=== PATIENT | female | born 1950 | race Caucasian/White ===

== ENCOUNTER 2016-08-01 23:30 | Emergency (ER) | payer BC ==
[2015-10-21 09:24] VITALS: BMI 35.9
[~2016-08-01 23:30] MED LIST: ACETAMINOPHEN325 MG PO; ASPIRIN325 MG PO; ASPIRIN81 MG PO; CELEXA10 MG PO; CORDARONE200 MG PO; COUMADIN3 MG PO; K-DUR20 MEQ PO; LASIX40 MG PO; LOVENOX60 MG/0.6 SC; NITROSTAT0.4 MG SL; TRIAMTERENE-HCT1 TA1 PO; ULTRAM50 MG PO; ZANTAC150 MG PO
[2016-08-02 00:48] LABS: HEMATOCRIT 39.9 % (36.0-48.0); HEMOGLOBIN 12.8 g/dL (12-16); LYMPHOCYTES 30.7 % (15-50); MCH 29.9 pg (26.0-34.0); MCHC 32.1 g/dL (31.0-37.0); MCV 93.2 fL (80.0-100.0); MEAN PLATELET VOLUME 9.9 fL (7.4-10.4); NEUTROPHILS 55.1 % (40-80); RBC 4.28 10x6/uL (4.00-5.40); RDW 15.2 % (11.5-14.5); WBC 6.5 10x3/uL (4.8-10.8)
[2016-08-02 00:56] LABS: ALBUMIN 3.6 g/dL (3.4-5.0); ALKALINE PHOSPHATASE 66 U/L (46-116); ALT (SGPT) 31 U/L (10-68); CALC OSMOLALITY 287 mosm/kg (275-300); CALCIUM 9.2 mg/dL (8.5-10.1); CARBON DIOXIDE 31.2 mmol/L (21.0-32.0); CHLORIDE - SERUM 103 mmol/L (98-107); CREATININE - SERUM 0.8 mg/dL (0.6-1.3); GLUCOSE 98 mg/dL (74-106); PLATELET COUNT 234 10x3/uL (130-400); POTASSIUM - SERUM 3.8 mmol/L (3.5-5.1); PROTEIN - SERUM 7.2 g/dL (6.4-8.2); SODIUM 142 mmol/L (136-145); UREA NITROGEN 27 mg/dL (7-18); eGFR NON AFRICAN AMERICAN 76 mL/min (90-120)
[2016-08-02 01:07] LABS: CKMB 1.4 U/L (0.0-3.6); CREATINE KINASE 93 UL (21-215)
[2016-08-02 01:08] LABS: TROPONIN-I < 0.017 ng/mL (0.000-0.060)
== END 2016-08-02 01:18 | disposition home or self-care (01) ==
LOC: D.ER 23:30
PROVIDERS: Emergency Medicine
DX: R07.9 Chest pain, unspecified (principal)

== ENCOUNTER → 2017-07-30 09:58 | Outpatient (CLI) | payer MEDICARE ==
[2015-10-21 09:24] VITALS: BMI 35.9
== END | disposition home or self-care (01) ==
LOC: D.US 09:58
DX: I83.891 Varicose veins of right lower extremity with other complications (principal)

== ENCOUNTER 2017-12-08 16:45 | Emergency (ER) | payer MEDICARE ==
[~2017-12-08] VITALS: Ht 152.4 cm; Wt 98.6 kg
[2017-12-08 16:50] VITALS: Ht 152.4 cm; Wt 98.6 kg
[2017-12-08] MEDS ORDERED: TOPROL XL25 MG PO (16:51)
[2017-12-08] MEDS ORDERED: LASIX40 MG PO (16:52)
[2017-12-08 17:21] LABS: BASOPHILS 0.5 % (0-2); EOSINOPHILS 3.5 % (0-7); HEMATOCRIT 40.2 % (36.0-48.0); HEMOGLOBIN 12.9 g/dL (12-16); IMMATURE GRANULOCYTES 1.2 % (0-5); LYMPHOCYTES 18.7 % (15-50); MCH 30.1 pg (26.0-34.0); MCHC 32.1 g/dL (31.0-37.0); MCV 93.7 fL (80.0-100.0); MONOCYTES 7.6 % (2-11); NEUTROPHILS 68.5 % (40-80); PLATELET COUNT 241 10x3/uL (130-400); RBC 4.29 10x6/uL (4.00-5.40); RDW 15.3 % (11.5-14.5)
[2017-12-08] MEDS ORDERED: NORCO 5/325 TAB1 TAB PO (17:30)
[2017-12-08 17:33] LABS: ALBUMIN 3.5 g/dL (3.4-5.0); ALKALINE PHOSPHATASE 79 U/L (46-116); ALT (SGPT) 36 U/L (10-68); BILIRUBIN - TOTAL 0.48 mg/dL (0.2-1.3); CALC OSMOLALITY 285 mosm/kg (275-300); CALCIUM 8.8 mg/dL (8.5-10.1); CARBON DIOXIDE 28.8 mmol/L (21.0-32.0); CHLORIDE - SERUM 105 mmol/L (98-107); CREATININE - SERUM 0.7 mg/dL (0.6-1.3); GLUCOSE 117 mg/dL (74-106); POTASSIUM - SERUM 4.2 mmol/L (3.5-5.1); PROTEIN - SERUM 7.2 g/dL (6.4-8.2); SODIUM 142 mmol/L (136-145); UREA NITROGEN 19 mg/dL (7-18); eGFR NON AFRICAN AMERICAN 89 mL/min (90-120)
[2017-12-08 19:05] VITALS: BP 115/85
[2017-12-10] MEDS ORDERED: PRAVASTATIN SOD10 MG PO (14:37)
[2017-12-10] MEDS ORDERED: K-TAB10 MEQ PO (14:38)
[2017-12-10] MEDS ORDERED: COUMADIN5 MG PO (14:40)
[2017-12-10] MEDS ORDERED: TORADOL10 MG PO (14:40)
== END 2017-12-08 19:06 | disposition home or self-care (01) ==
LOC: D.ER 16:45
PROVIDERS: Emergency Medicine
DX: S89.91XA Unspecified injury of right lower leg, initial encounter (principal); W18.31XA Fall on same level due to stepping on an object, initial encounter; Y93.89 Activity, other specified; Y92.481 Parking lot as the place of occurrence of the external cause; Z79.01 Long term (current) use of anticoagulants; I48.91 Unspecified atrial fibrillation; Z95.2 Presence of prosthetic heart valve; M25.561 Pain in right knee; I10 Essential (primary) hypertension

== ENCOUNTER 2017-12-11 05:30 | Inpatient (IN) | payer MEDICARE ==
[2017-12-10 15:18] LABS: BASOPHILS 0.6 % (0-2); EOSINOPHILS 2.3 % (0-7); HEMOGLOBIN 11.8 g/dL (12-16); IMMATURE GRANULOCYTES 0.7 % (0-5); LYMPHOCYTES 14.5 % (15-50); MCHC 31.9 g/dL (31.0-37.0); MCV 94.1 fL (80.0-100.0); MEAN PLATELET VOLUME 9.9 fL (7.4-10.4); MONOCYTES 8.1 % (2-11); NEUTROPHILS 73.8 % (40-80); PLATELET COUNT 284 10x3/uL (130-400); RBC 3.93 10x6/uL (4.00-5.40); RDW 15.5 % (11.5-14.5); WBC 11.7 10x3/uL (4.8-10.8)
[2017-12-10 15:28] LABS: APTT 39.4 SECONDS (22.8-39.4); INR 2.69 (0.85-1.17); PROTIME 27.9 SECONDS (11.6-15.0)
[2017-12-10 15:59] LABS: CALC OSMOLALITY 285 mosm/kg (275-300); CALCIUM 9.1 mg/dL (8.5-10.1); CARBON DIOXIDE 27.4 mmol/L (21.0-32.0); CHLORIDE - SERUM 101 mmol/L (98-107); CREATININE - SERUM 0.7 mg/dL (0.6-1.3); GLUCOSE 119 mg/dL (74-106); POTASSIUM - SERUM 4.2 mmol/L (3.5-5.1); SODIUM 141 mmol/L (136-145); UREA NITROGEN 23 mg/dL (7-18); eGFR NON AFRICAN AMERICAN 89 mL/min (90-120)
[~2017-12-11] VITALS: Ht 152.4 cm; Wt 98.9 kg
--- NOTE | ~2017-12-11 | MORECARE ---
CASE MANAGEMENT DISCHARGE SUMMARY PATIENT: NIYA KINNEY UNIT: [id number] ADM DATE: 12/11/17 AGE: 67 : 51 SEX: F ROOM/BED: D.2217 AUTHOR: LETY NATHAN PHYSICIAN: REFERRING PHYSICIAN: MENA CORONEL MD DATE OF SERVICE: 12/13/17 Discharge Plan Patient Name: NIYA KINNEY Facility: [facility]:[place] : 1950 Planned Disposition: Home Anticipated Discharge Date: 12/13/17 Discharge Date: Expected LOS: 2 Initial Reviewer: [id number] Initial Review Date: 12/13/2017 Generated: 12/13/17 12:10 pm Comments DCP- Discharge Planning Updated by [email or web address]: Scarlet Peck on 12/13/17 9:[address] Patient Name: NIYA KINNEY Admission Status: Elective Accout number: [id number] Admission Date: 12-11-2017 : 1950 Admission Diagnosis:CONTUSION OF RIGHT KNEE, INITIAL ENCOUNTER Attending: MENA CORONEL Current LOS: 2 Anticipated DC Date: 12-13-2017 Planned Disposition: Home Primary Insurance: [employer] MED[employer]ARE ADV Discharge Planning Comments: CM MET WITH PATIENT ABOUT DC PLANNING/NEEDS. PATIENT STATES PLANS TO DC HOME TODAY. SON IS TO REVERSAL PRINT INSPECTOR AND BRING HER WALKER. SHE STATES IF SHE IS TO HAVE PT SHE WOULD LIKE A PRESCRIPTION FOR IT TO TAKE WITH HER. CM WILL FOLLOW AND ASSIST NEEDED WITH DC PLANNING/NEEDS. IMM SERVED. Pharmaceutical Representative: Scarlet Peck DCPIA - Discharge Planning Initial Assessment Updated by [email or web address]: Scarlet Peck on 12/13/17 10:43 am * Is the patient Alert and Oriented? Yes * PCP BRENDA * [facility] * Preadmission Environment Home with Family * ADLs Independent * Equipment Cane Elevated Toliet Seat Walker * List name and contact numbers for known caregivers / representatives who currently or will assist patient after discharge: HUMA GANDHI, * Community resources currently utilized None * Additional services required to return to the preadmission environment? Yes * Can the patient safely return to the preadmission environment? Yes * Has this patient been hospitalized within the prior 30 days at any hospital? No External Providers External Provider: [facility] Next Contact Date: Service Request Date: Service Type: Resolution: Reviewer: Comments: Coverage Notice Reviewer: [id number] Emerita Peck Notice Issued Date-Time: 12/13/2017 10:26 Notice Type: IM Discharge Notice Notice Delivered To: Patient Relationship to Patient: Self Internal Medicine Specialist Name: Delivery Method: HAND - Hand Delivered Kenna Days: Prior Verbal Notification: Recipient Understood Notice: Yes Recipient Signature: Yes Med Rec Note Co-signed by Attending: Coverage Notice Comment: Last DP export: 12/13/17 9:54 Patient Name: NIYA KINNEY Page [phone] at 1110 All edits/amendments must be made on the electronic document DICTATION DATE: 12/13/171108 STEEL PLACER: BRENDA 12/13/171108 RPT#: [id number] DC DATE: STATUS: ADM IN [facility] [address] [place] [address] END OF REPORT
--- NOTE | ~2017-12-11 | MORECARE ---
CASE MANAGEMENT DISCHARGE SUMMARY PATIENT: NIYA KINNEY UNIT: [id number] ADM DATE: 12/11/17 AGE: 67 : 51 SEX: F ROOM/BED: D.2217 AUTHOR: LETY NATHAN PHYSICIAN: REFERRING PHYSICIAN: MENA CORONEL MD DATE OF SERVICE: 12/16/17 Discharge Plan Patient Name: NIYA KINNEY Facility: [facility]:[place] : 1950 Planned Disposition: Home Anticipated Discharge Date: 12/13/17 Discharge Date: 12/13/2017 Expected LOS: 2 Initial Reviewer: [id number] Initial Review Date: 12/13/2017 Generated: 12/16/17 9:26 am Comments DCP- Discharge Planning Updated by [email or web address]: Scarlet Peck on 12/13/17 10:[address] Patient Name: NIYA KINNEY Encounter No: [id number] : 1950 Primary Insurance: [employer] MEDICARE ADV Anticipated DC Date: 12-13-2017 Planned Disposition: Home External Planned Provider: : DCP follow-up note: CM SPOKE WITH PATIENT, [facility]TER FOR HH, WALTER CAN SEE PATIENT ON SATURDAY. DOCUMENTS FAXED TO WALTER AND MADDIE SIGNED. Case management will follow and assist as needed. Scarlet Peck DCP- Discharge Planning Updated by [email or web address]: Scarlet Peck on 12/13/17 9:[address] Patient Name: NIYA KINNEY Admission Status: Elective Accout number: [id number] Admission Date: 12-11-2017 : 1950 Admission Diagnosis:CONTUSION OF RIGHT KNEE, INITIAL ENCOUNTER Attending: MENA CORONEL Current LOS: 2 Anticipated DC Date: 12-13-2017 Planned Disposition: Home Primary Insurance: [employer] MEDICARE ADV Discharge Planning Comments: CM MET WITH PATIENT ABOUT DC PLANNING/NEEDS. PATIENT STATES PLANS TO DC HOME TODAY. SON IS TO NITRO MAN AND BRING HER WALKER. SHE STATES IF SHE IS TO HAVE PT SHE WOULD LIKE A PRESCRIPTION FOR IT TO TAKE WITH HER. CM WILL FOLLOW AND ASSIST NEEDED WITH DC PLANNING/NEEDS. IMM SERVED. Inspection Manager: Scarlet Peck DCPIA - Discharge Planning Initial Assessment Updated by [email or web address]: Scarlet Peck on 12/13/17 10:43 am * Is the patient Alert and Oriented? Yes * PCP BRENDA * [facility] * Preadmission Environment Home with Family * ADLs Independent * Equipment Cane Elevated Toliet Seat Walker * List name and contact numbers for known caregivers / representatives who currently or will assist patient after discharge: HUMA GANDHI, * Community resources currently utilized None * Additional services required to return to the preadmission environment? Yes * Can the patient safely return to the preadmission environment? Yes * Has this patient been hospitalized within the prior 30 days at any hospital? No Coverage Notice Reviewer: [id number] Emerita Peck Notice Issued Date-Time: 12/13/2017 10:26 Notice Type: IM Discharge Notice Notice Delivered To: Patient Relationship to Patient: Self Fish House Worker Name: Delivery Method: HAND - Hand Delivered Kenna Days: Prior Verbal Notification: Recipient Understood Notice: Yes Recipient Signature: Yes Med Rec Note Co-signed by Attending: Coverage Notice Comment: Reviewer: [id number] Peck Notice Issued Date-Time: 12/13/2017 11:19 Notice Type: Patient Choice Letter Notice Delivered To: Patient Relationship to Patient: Self Fish House Worker Name: Delivery Method: HAND - Hand Delivered Kenna Days: Prior Verbal Notification: Recipient Understood Notice: Yes Recipient Signature: Yes Med Rec Note Co-signed by Attending: Coverage Notice Comment: [facility] Last DP export: 12/13/17 10:33 Patient Name: NIYA KINNEY Page [phone] at 0826 All edits/amendments must be made on the electronic document DICTATION DATE: 12/16/17824 ELECTRICIAN CONSTRUCTOR SUPERVISOR: BRENDA 12/16/17824 RPT#: [id number] DC DATE:12/13/17 STATUS: DIS IN [facility] [address] [place] [address] END OF REPORT
--- NOTE | ~2017-12-11 | MORECARE ---
CASE MANAGEMENT DISCHARGE SUMMARY PATIENT: NIYA KINNEY UNIT: [id number] ADM DATE: 12/11/17 AGE: 67 : 51 SEX: F ROOM/BED: D.2217 AUTHOR: LETY NATHAN PHYSICIAN: REFERRING PHYSICIAN: MENA CORONEL MD DATE OF SERVICE: 12/13/17 Discharge Plan Patient Name: NIYA KINNEY Facility: [facility]:[place] : 1950 Planned Disposition: Home Anticipated Discharge Date: 12/13/17 Discharge Date: Expected LOS: 2 Initial Reviewer: [id number] Initial Review Date: 12/13/2017 Generated: 12/13/17 12:17 pm Comments DCP- Discharge Planning Updated by [email or web address]: Scarlet Peck on 12/13/17 9:[address] Patient Name: NIYA KINNEY Admission Status: Elective Accout number: [id number] Admission Date: 12-11-2017 : 1950 Admission Diagnosis:CONTUSION OF RIGHT KNEE, INITIAL ENCOUNTER Attending: MENA CORONEL Current LOS: 2 Anticipated DC Date: 12-13-2017 Planned Disposition: Home Primary Insurance: [employer] MEDICARE ADV Discharge Planning Comments: CM MET WITH PATIENT ABOUT DC PLANNING/NEEDS. PATIENT STATES PLANS TO DC HOME TODAY. SON IS TO SENIOR PARTNER AND BRING HER WALKER. SHE STATES IF SHE IS TO HAVE PT SHE WOULD LIKE A PRESCRIPTION FOR IT TO TAKE WITH HER. CM WILL FOLLOW AND ASSIST NEEDED WITH DC PLANNING/NEEDS. IMM SERVED. Volunteer Services Specialist: Scarlet Peck DCPIA - Discharge Planning Initial Assessment Updated by [email or web address]: Scarlet Peck on 12/13/17 10:43 am * Is the patient Alert and Oriented? Yes * PCP BRENDA * [facility] * Preadmission Environment Home with Family * ADLs Independent * Equipment Cane Elevated Toliet Seat Walker * List name and contact numbers for known caregivers / representatives who currently or will assist patient after discharge: HUMA GANDHI, * Community resources currently utilized None * Additional services required to return to the preadmission environment? Yes * Can the patient safely return to the preadmission environment? Yes * Has this patient been hospitalized within the prior 30 days at any hospital? No External Providers External Provider: [facility] Next Contact Date: Service Request Date: Service Type: Resolution: Reviewer: Comments: Coverage Notice Reviewer: [id number] Emerita Peck Notice Issued Date-Time: 12/13/2017 10:26 Notice Type: IM Discharge Notice Notice Delivered To: Patient Relationship to Patient: Self Loin Puller Name: Delivery Method: HAND - Hand Delivered Kenna Days: Prior Verbal Notification: Recipient Understood Notice: Yes Recipient Signature: Yes Med Rec Note Co-signed by Attending: Coverage Notice Comment: Last DP export: 12/13/17 10:10 Patient Name: NIYA KINNEY Page 15880 at 1117 All edits/amendments must be made on the electronic document DICTATION DATE: 12/13/171115 PARTY COORDINATOR: BRENDA 12/13/171115 RPT#: [id number] DC DATE: STATUS: ADM IN [facility] [address] [place] [address] END OF REPORT
--- NOTE | ~2017-12-11 | MORECARE ---
CASE MANAGEMENT DISCHARGE SUMMARY PATIENT: NIYA KINNEY UNIT: [id number] ADM DATE: 12/11/17 AGE: 67 : 51 SEX: F ROOM/BED: D.2217 AUTHOR: LETY NATHAN PHYSICIAN: REFERRING PHYSICIAN: MENA CORONEL MD DATE OF SERVICE: 12/13/17 Discharge Plan Patient Name: NIYA KINNEY Facility: [facility]:[place] : 1950 Planned Disposition: Home Anticipated Discharge Date: 12/13/17 Discharge Date: Expected LOS: 2 Initial Reviewer: [id number] Initial Review Date: 12/13/2017 Generated: 12/13/17 11:54 am Comments DCP- Discharge Planning Updated by [email or web address]: Scarlet Peck on 12/13/17 9:[address] Patient Name: NIYA KINNEY Admission Status: Elective Accout number: [id number] Admission Date: 12-11-2017 : 1950 Admission Diagnosis:CONTUSION OF RIGHT KNEE, INITIAL ENCOUNTER Attending: MENA CORONEL Current LOS: 2 Anticipated DC Date: 12-13-2017 Planned Disposition: Home Primary Insurance: [employer] MEDICARE ADV Discharge Planning Comments: CM MET WITH PATIENT ABOUT DC PLANNING/NEEDS. PATIENT STATES PLANS TO DC HOME TODAY. SON IS TO BORDER POLICE AND BRING HER WALKER. SHE STATES IF SHE IS TO HAVE PT SHE WOULD LIKE A PRESCRIPTION FOR IT TO TAKE WITH HER. CM WILL FOLLOW AND ASSIST NEEDED WITH DC PLANNING/NEEDS. IMM SERVED. Director Cloud Transformation: Scarlet Peck DCPIA - Discharge Planning Initial Assessment Updated by [email or web address]: Scarlet Peck on 12/13/17 10:43 am * Is the patient Alert and Oriented? Yes * PCP BRENDA * [facility] * Preadmission Environment Home with Family * ADLs Independent * Equipment Cane Elevated Toliet Seat Walker * List name and contact numbers for known caregivers / representatives who currently or will assist patient after discharge: HUMA GANDHI, * Community resources currently utilized None * Additional services required to return to the preadmission environment? Yes * Can the patient safely return to the preadmission environment? Yes * Has this patient been hospitalized within the prior 30 days at any hospital? No Coverage Notice Reviewer: [id number] Emerita Peck Notice Issued Date-Time: 12/13/2017 10:26 Notice Type: IM Discharge Notice Notice Delivered To: Patient Relationship to Patient: Self Road Conductor Name: Delivery Method: HAND - Hand Delivered Eknna Days: Prior Verbal Notification: Recipient Understood Notice: Yes Recipient Signature: Yes Med Rec Note Co-signed by Attending: Coverage Notice Comment: Last DP export: 12/13/17 9:44 Patient Name: NIYA KINNEY Page [phone] at 1054 All edits/amendments must be made on the electronic document DICTATION DATE: 12/13/17 1053 UNION CARPENTER: BRENDA 12/13/17 1053 RPT#: [id number] DC DATE: STATUS: ADM IN [facility] [address] [place] [address] END OF REPORT
--- NOTE | ~2017-12-11 | MORECARE ---
CASE MANAGEMENT DISCHARGE SUMMARY PATIENT: NIYA KINNEY UNIT: [id number] ADM DATE: 12/11/17 AGE: 67 : 51 SEX: F ROOM/BED: D.2217 AUTHOR: LETY NATHAN PHYSICIAN: REFERRING PHYSICIAN: MENA CORONEL MD DATE OF SERVICE: 12/13/17 Discharge Plan Patient Name: NIYA KINNEY Facility: [facility]:[place] : 1950 Planned Disposition: Home Anticipated Discharge Date: 12/13/17 Discharge Date: Expected LOS: 2 Initial Reviewer: [id number] Initial Review Date: 12/13/2017 Generated: 12/13/17 12:33 pm Comments DCP- Discharge Planning Updated by [email or web address]: Sacrlet Peck on 12/13/17 10:[address] Patient Name: NIYA KINNEY Encounter No: [id number] : 1950 Primary Insurance: [employer] MEDICARE ADV Anticipated DC Date: 12-13-2017 Planned Disposition: Home External Planned Provider: : DCP follow-up note: CM SPOKE WITH PATIENT, [facility] FOR HH, WALTER CAN SEE PATIENT ON SATURDAY. DOCUMENTS FAXED TO WALTER AND MADDIE SIGNED. Case management will follow and assist as needed. Scarlet Peck DCP- Discharge Planning Updated by [email or web address]: Scarlet Peck on 12/13/17 9:[address] Patient Name: NIYA KINNEY Admission Status: Elective Accout number: [id number] Admission Date: 12-11-2017 : 1950 Admission Diagnosis:CONTUSION OF RIGHT KNEE, INITIAL ENCOUNTER Attending: MENA CORONEL Current LOS: 2 Anticipated DC Date: 12-13-2017 Planned Disposition: Home Primary Insurance: [employer] MEDICARE ADV Discharge Planning Comments: CM MET WITH PATIENT ABOUT DC PLANNING/NEEDS. PATIENT STATES PLANS TO DC HOME TODAY. SON IS TO HEALTH EDUCATOR AND BRING HER WALKER. SHE STATES IF SHE IS TO HAVE PT SHE WOULD LIKE A PRESCRIPTION FOR IT TO TAKE WITH HER. CM WILL FOLLOW AND ASSIST NEEDED WITH DC PLANNING/NEEDS. IMM SERVED. Account Consultant: Scarlet Peck DCPIA - Discharge Planning Initial Assessment Updated by [email or web address]: Scarlet Peck on 12/13/17 10:43 am * Is the patient Alert and Oriented? Yes * PCP BRENDA * [facility] * Preadmission Environment Home with Family * ADLs Independent * Equipment Cane Elevated Toliet Seat Walker * List name and contact numbers for known caregivers / representatives who currently or will assist patient after discharge: HUMA GANDHI, * Community resources currently utilized None * Additional services required to return to the preadmission environment? Yes * Can the patient safely return to the preadmission environment? Yes * Has this patient been hospitalized within the prior 30 days at any hospital? No Coverage Notice Reviewer: [id number] Peck Notice Issued Date-Time: 12/13/2017 10:26 Notice Type: IM Discharge Notice Notice Delivered To: Patient Relationship to Patient: Self Oil Well Driller Name: Delivery Method: HAND - Hand Delivered Kenna Days: Prior Verbal Notification: Recipient Understood Notice: Yes Recipient Signature: Yes Med Rec Note Co-signed by Attending: Coverage Notice Comment: Reviewer: [email or web address] Peck Notice Issued Date-Time: 12/13/2017 11:19 Notice Type: Patient Choice Letter Notice Delivered To: Patient Relationship to Patient: Self Oil Well Driller Name: Delivery Method: HAND - Hand Delivered Kenna Days: Prior Verbal Notification: Recipient Understood Notice: Yes Recipient Signature: Yes Med Rec Note Co-signed by Attending: Coverage Notice Comment: [facility] Last DP export: 12/13/17 10:17 Patient Name: NIYA KINNEY Page [phone] at 1133 All edits/amendments must be made on the electronic document DICTATION DATE: 12/13/17 1133 SEARCH SPECIALIST: BRENDA 12/13/17 1133 RPT#: [id number] DC DATE: STATUS: ADM IN [facility] [address] [place] [address] END OF REPORT
--- NOTE | ~2017-12-11 | MORECARE ---
CASE MANAGEMENT DISCHARGE SUMMARY PATIENT: NIYA KINNEY UNIT: [id number] ADM DATE: 12/11/17 AGE: 67 : 51 SEX: F ROOM/BED: D.2217 AUTHOR: LETY NATHAN PHYSICIAN: REFERRING PHYSICIAN: MENA CORONEL MD DATE OF SERVICE: 12/13/17 Discharge Plan Patient Name: NIYA KINNEY [facility] : 1950 Planned Disposition: Home Anticipated Discharge Date: 12/13/17 Discharge Date: Expected LOS: 2 Initial Reviewer: [email or web address] Initial Review Date: 12/13/2017 Generated: 12/13/17 11:44 am DCPIA - Discharge Planning Initial Assessment Updated by [email or web address]: Scarlet Peck on 12/13/17 10:43 am * Is the patient Alert and Oriented? Yes * PCP BRENDA * Pharmacy [facility] * Preadmission Environment Home with Family * ADLs Independent * Equipment Cane Elevated Toliet Seat Walker * List name and contact numbers for known caregivers / representatives who currently or will assist patient after discharge: HUMA GANDHI, * Community resources currently utilized None * Additional services required to return to the preadmission environment? Yes * Can the patient safely return to the preadmission environment? Yes * Has this patient been hospitalized within the prior 30 days at any hospital? No Coverage Notice Reviewer: [id number] - Scarlet Peck Notice Issued Date-Time: 12/13/2017 10:26 Notice Type: IM Discharge Notice Notice Delivered To: Patient Relationship to Patient: Self Photo Checker Name: Delivery Method: HAND - Hand Delivered Kenna Days: Prior Verbal Notification: Recipient Understood Notice: Yes Recipient Signature: Yes Med Rec Note Co-signed by Attending: Coverage Notice Comment: Patient Name: NIYA KINNEY Page [phone] at 1044 All edits/amendments must be made on the electronic document DICTATION DATE: 12/13/17 1043 MANAGED CARE COORDINATOR: BRENDA 12/13/17 1043 RPT#: [id number] DC DATE: STATUS: ADM IN [address] [address] END OF REPORT
[~2017-12-11 05:30] MED LIST changes: +COUMADIN5 MG PO; +K-TAB10 MEQ PO; +NORCO 5/325 TAB1 TAB PO; +PRAVASTATIN SOD10 MG PO; +TOPROL XL25 MG PO; +TORADOL10 MG PO
[2017-12-11 06:47] VITALS: BP 123/73; BMI 42.6
[2017-12-11 09:41] VITALS: BP 132/58
[2017-12-11 11:36] LABS: INR 2.57 (0.85-1.17); PROTIME 26.9 SECONDS (11.6-15.0)
[2017-12-11 13:03] VITALS: BP 113/62
[2017-12-11 15:45] VITALS: BP 112/52
[2017-12-11 16:54] LABS: BASOPHILS 0.2 % (0-2); EOSINOPHILS 0 % (0-7); HEMATOCRIT 30.4 % (36.0-48.0); IMMATURE GRANULOCYTES 0.8 % (0-5); LYMPHOCYTES 6.5 % (15-50); MCH 29.7 pg (26.0-34.0); MCHC 30.6 g/dL (31.0-37.0); MEAN PLATELET VOLUME 10.3 fL (7.4-10.4); MONOCYTES 3.7 % (2-11); NEUTROPHILS 88.8 % (40-80); RDW 15.8 % (11.5-14.5); WBC 10.8 10x3/uL (4.8-10.8)
[2017-12-11 16:55] LABS: HEMOGLOBIN 9.3 g/dL (12-16); MCV 97.1 fL (80.0-100.0); PLATELET COUNT 208 10x3/uL (130-400); RBC 3.13 10x6/uL (4.00-5.40)
[2017-12-11 21:24] VITALS: BP 127/63
[2017-12-12] VITALS (7 sets, daily range): BP systolic 90–128; BP diastolic 44–68; Ht 152.4 cm; Wt 98.9 kg
[2017-12-12 06:43] LABS: INR 2.47 (0.85-1.17); PROTIME 26.1 SECONDS (11.6-15.0)
[2017-12-12 06:47] LABS: CALC OSMOLALITY 286 mosm/kg (275-300); CALCIUM 8.2 mg/dL (8.5-10.1); CARBON DIOXIDE 30.3 mmol/L (21.0-32.0); CHLORIDE - SERUM 104 mmol/L (98-107); CREATININE - SERUM 0.6 mg/dL (0.6-1.3); GLUCOSE 151 mg/dL (74-106); POTASSIUM - SERUM 3.6 mmol/L (3.5-5.1); SODIUM 142 mmol/L (136-145); eGFR NON AFRICAN AMERICAN > 90 mL/min (90-120)
[2017-12-12 06:48] LABS: UREA NITROGEN 15 mg/dL (7-18)
[2017-12-12 09:33] LABS: BASOPHILS 0.3 % (0-2); EOSINOPHILS 0.1 % (0-7); HEMATOCRIT 27.5 % (36.0-48.0); HEMOGLOBIN 8.6 g/dL (12-16); LYMPHOCYTES 11.8 % (15-50); MCH 29.9 pg (26.0-34.0); MCHC 31.3 g/dL (31.0-37.0); MCV 95.5 fL (80.0-100.0); MEAN PLATELET VOLUME 10.2 fL (7.4-10.4); NEUTROPHILS 75.8 % (40-80); RBC 2.88 10x6/uL (4.00-5.40); RDW 15.9 % (11.5-14.5); WBC 11.4 10x3/uL (4.8-10.8)
[2017-12-12 09:45] LABS: PLATELET COUNT 262 10x3/uL (130-400)
[2017-12-13 05:01] VITALS: BP 99/41
[2017-12-13 05:19] LABS: BASOPHILS 0.5 % (0-2); EOSINOPHILS 2.9 % (0-7); HEMATOCRIT 25.7 % (36.0-48.0); HEMOGLOBIN 8.1 g/dL (12-16); IMMATURE GRANULOCYTES 0.9 % (0-5); LYMPHOCYTES 23.3 % (15-50); MCH 30.5 pg (26.0-34.0); MCHC 31.5 g/dL (31.0-37.0); MCV 96.6 fL (80.0-100.0); MEAN PLATELET VOLUME 9.4 fL (7.4-10.4); MONOCYTES 10.7 % (2-11); NEUTROPHILS 61.7 % (40-80); PLATELET COUNT 224 10x3/uL (130-400); RBC 2.66 10x6/uL (4.00-5.40); RDW 16.1 % (11.5-14.5); WBC 8.6 10x3/uL (4.8-10.8)
[2017-12-13 05:28] LABS: INR 2.46 (0.85-1.17)
[2017-12-13 05:31] LABS: CALC OSMOLALITY 281 mosm/kg (275-300); CALCIUM 7.9 mg/dL (8.5-10.1); CARBON DIOXIDE 29.9 mmol/L (21.0-32.0); CHLORIDE - SERUM 105 mmol/L (98-107); CREATININE - SERUM 0.5 mg/dL (0.6-1.3); POTASSIUM - SERUM 3.8 mmol/L (3.5-5.1); SODIUM 141 mmol/L (136-145); UREA NITROGEN 14 mg/dL (7-18); eGFR NON AFRICAN AMERICAN > 90 mL/min (90-120)
[2017-12-13 05:32] LABS: GLUCOSE 98 mg/dL (74-106)
[2017-12-13 07:55] VITALS: BP 112/55
== END 2017-12-13 18:30 | disposition home health service (06) | DRG 605 ==
LOC: OBSVTIME → D.OPS 05:30 → D.PAN 07:30 → D.OPS 07:30 → D.MS 08:37 → D.OPS 09:23 → D.MS 09:24 → OBSVTIME 09:24 → D.MS 09:25
PROVIDERS: Emergency Medicine; Nurse Practitioner Family; Orthopaedic Surgery
PROC: 0Y9H0ZZ Drainage of Right Lower Leg, Open Approach (ICD-10-PCS; principal; 2017-12-11 07:30)
DX: S80.01XA Contusion of right knee, initial encounter (principal); Z68.41 Body mass index [BMI] 40.0-44.9, adult; W01.0XXA Fall on same level from slipping, tripping and stumbling without subsequent striking against object, initial encounter; I10 Essential (primary) hypertension; I48.91 Unspecified atrial fibrillation; E66.9 Obesity, unspecified; F32.9 Major depressive disorder, single episode, unspecified; Z87.891 Personal history of nicotine dependence

== ENCOUNTER → 2017-12-16 13:44 | Outpatient (CLI) | payer MEDICARE ==
[2017-12-12 10:22] VITALS: BMI 42.5
[2017-12-16 14:41] LABS: BASOPHILS 0.4 % (0-2); EOSINOPHILS 3.3 % (0-7); HEMATOCRIT 28.6 % (36.0-48.0); HEMOGLOBIN 8.8 g/dL (12-16); IMMATURE GRANULOCYTES 1.3 % (0-5); LYMPHOCYTES 15.3 % (15-50); MCH 29.8 pg (26.0-34.0); MCHC 30.8 g/dL (31.0-37.0); MCV 96.9 fL (80.0-100.0); MEAN PLATELET VOLUME 9.4 fL (7.4-10.4); MONOCYTES 10.4 % (2-11); NEUTROPHILS 69.3 % (40-80); RBC 2.95 10x6/uL (4.00-5.40); RDW 16.3 % (11.5-14.5); WBC 8.5 10x3/uL (4.8-10.8)
[2017-12-16 14:43] LABS: PLATELET COUNT 321 10x3/uL (130-400)
[2017-12-16 15:30] LABS: ERYTHROCYTE SEDIMENTATION RATE 48 mm/hr (0-30)
== END | disposition home or self-care (01) ==
LOC: D.LAB 13:44
PROVIDERS: Orthopaedic Surgery
DX: M25.561 Pain in right knee (principal); S80.01XA Contusion of right knee, initial encounter; X58.XXXA Exposure to other specified factors, initial encounter

== ENCOUNTER → 2018-01-14 10:00 | Outpatient (CLI) | payer MEDICARE ==
[2017-12-12 10:22] VITALS: BMI 42.5
== END | disposition home or self-care (01) ==
LOC: D.US 10:00
DX: I82.409 Acute embolism and thrombosis of unspecified deep veins of unspecified lower extremity (principal)

== ENCOUNTER 2018-06-09 08:00 | Outpatient (CLI) | payer MEDICARE ==
[2017-12-12 10:22] VITALS: BMI 42.5
== END 2018-06-09 09:00 | disposition home or self-care (01) ==
LOC: D.MAMMO 08:00
PROVIDERS: ATTEND Family Medicine
DX: Z12.31 Encounter for screening mammogram for malignant neoplasm of breast (principal)

== ENCOUNTER → 2018-09-26 08:42 | Outpatient (CLI) | payer MEDICARE ==
[2017-12-12 10:22] VITALS: BMI 42.5
== END | disposition home or self-care (01) ==
LOC: D.HCCARDIO 08:42
PROVIDERS: ATTEND Internal Medicine Cardiovascular Disease
DX: Z95.4 Presence of other heart-valve replacement (principal)

== ENCOUNTER 2018-12-02 18:00 | Emergency (ER) | payer MEDICARE ==
[~2018-12-02] VITALS: Ht 152.4 cm; Wt 96.4 kg
[2018-12-02 18:29] VITALS: Ht 152.4 cm; Wt 96.4 kg
[2018-12-02 19:06] LABS: BASOPHILS 0.7 % (0-2); EOSINOPHILS 2.1 % (0-7); HEMATOCRIT 42.9 % (36.0-48.0); HEMOGLOBIN 13.4 g/dL (12-16); IMMATURE GRANULOCYTES 0.5 % (0-5); MCH 29.9 pg (26.0-34.0); MCHC 31.2 g/dL (31.0-37.0); MCV 95.8 fL (80.0-100.0); MEAN PLATELET VOLUME 10.1 fL (7.4-10.4); MONOCYTES 8.9 % (2-11); NEUTROPHILS 71.8 % (40-80); PLATELET COUNT 278 10x3/uL (130-400); RBC 4.48 10x6/uL (4.00-5.40); RDW 15.6 % (11.5-14.5); WBC 11.2 10x3/uL (4.8-10.8)
[2018-12-02 19:26] LABS: APTT 44.6 SECONDS (22.8-39.4); INR 2.95 (0.85-1.17)
[2018-12-02 19:40] LABS: ALBUMIN 3.6 g/dL (3.4-5.0); ALKALINE PHOSPHATASE 89 U/L (46-116); ALT (SGPT) 23 U/L (10-68); BILIRUBIN - TOTAL 0.59 mg/dL (0.2-1.3); CALC OSMOLALITY 288 mosm/kg (275-300); CALCIUM 8.7 mg/dL (8.5-10.1); CARBON DIOXIDE 31.7 mmol/L (21.0-32.0); CHLORIDE - SERUM 105 mmol/L (98-107); CREATININE - SERUM 0.6 mg/dL (0.6-1.3); GLUCOSE 95 mg/dL (74-106); PROTEIN - SERUM 7.1 g/dL (6.4-8.2); SODIUM 144 mmol/L (136-145); UREA NITROGEN 18 mg/dL (7-18); eGFR NON AFRICAN AMERICAN > 90 mL/min (90-120)
[2018-12-03] VITALS: BP 147/78
== END 2018-12-02 20:03 | disposition home or self-care (01) ==
LOC: D.ER 18:00
PROVIDERS: Family Medicine
DX: R04.0 Epistaxis (principal); D68.2 Hereditary deficiency of other clotting factors

== ENCOUNTER → 2019-10-12 09:16 | Outpatient (CLI) | payer MEDICARE ==
[2018-12-02 18:29] VITALS: BMI 41.4
== END | disposition home or self-care (01) ==
LOC: D.HCCECHO 09:16
PROVIDERS: ATTEND Internal Medicine Cardiovascular Disease
DX: I35.0 Nonrheumatic aortic (valve) stenosis (principal)